=== PATIENT | male | born 1940 | race Caucasian/White ===

== ENCOUNTER 2019-12-04 13:11 | Outpatient (CLI) | payer MEDICARE, OTHER, SELFPAY | END 2019-12-04 13:12 | disposition home or self-care (01) | LOC: CHSLAB 13:18 | PROVIDERS: PCP Internal Medicine; Visit Provider Specialist | DX: C44.329 Squamous cell carcinoma of skin of other parts of face (principal) | CPT/HCPCS: 88305 ==

== ENCOUNTER 2019-12-11 07:59 | Outpatient (CLI) | payer MEDICARE, SELFPAY ==
[2019-12-11 08:11] LABS: Basophils Absolute Auto 0.09 K/mm3 (0.00-0.10); Basophils Percent Auto 0.5 % (0.0-1.0); Eosinophils Absolute Auto 0.23 K/mm3 (0.02-0.50); Eosinophils Percent Auto 1.3 % (1.0-6.0); Hematocrit 36.8 % (37.0-46.0); Hemoglobin 11.4 g/dL (12.4-15.3); Immature Granulocyte Absolute 0.51 K/mm3 (0.00-0.00); Immature Granulocyte Percent A 2.8 % (0.0-0.0); Lymphocytes Absolute Auto 2.14 K/mm3 (1.10-4.50); Lymphocytes Percent Auto 11.9 % (18.0-42.0); Mean Corpuscular Hemoglobin 30.9 pg (27.0-31.0); Mean Corpuscular Volume 99.7 fL (78.0-102.0); Mean Platelet Volume 9.5 fl (8.7-11.0); Monocytes Absolute Auto 1.88 K/mm3 (0.10-0.90); Monocytes Percent Auto 10.5 % (2.0-11.0); Neutrophils Absolute Auto 13.1 K/mm3 (1.7-7.2); Platelet Count Result 237 K/mm3 (150-420); Red Blood Count 3.69 M/mm3 (4.70-6.10); Red Cell Distribution Width 14.5 % (11.6-14.4); White Blood Count 17.9 K/mm3 (4.8-10.8)
[2019-12-11 08:21] LABS: Hemoglobin A1C 5.8 % (<5.7)
[2019-12-11 09:07] LABS: Alanine Aminotransferase 21 U/L (16-63); Albumin Level 3.8 g/dL (3.4-5.0); Alkaline Phosphatase 58 U/L (46-116); Anion Gap 9.3 mmol/L (7-16); Aspartate Amino Transferase 21 U/L (15-37); Bilirubin,Total 0.3 mg/dL (0.00-1.00); Blood Urea Nitrogen 26 mg/dL (7-18); Calcium 8.8 mg/dL (8.5-10.1); Carbon Dioxide 36 mmol/L (21-32); Chloride 104 mmol/L (98-108); Cholesterol 209 mg/dL (0-200); Creatine Kinase 35 U/L (39-308); Estimated Glomerular Filt Rate 53; Ferritin 247 ng/mL (26-388); Glucose 91 mg/dL (70-99); HDL Direct 82 mg/dL (40-60); Iron 65 ug/dL (65-175); LDL Cholesterol Calculated 114 mg/dL (<130); Osmolality Calculated 304 mOsm/kg (285-295); Percent Iron Saturation 25 % (12-57); Potassium 4.3 mmol/L (3.5-5.1); Sodium 145 mmol/L (136-145); Total Protein 6.5 g/dL (6.4-8.2); Triglycerides 67 mg/dL (0-150)
[2019-12-11 12:40] LABS: Appearance Urine Clear (Clear); Bilirubin Urine Negative (Negative); Color Urine Yellow (Yellow); Glucose Urine UA Negative (Negative); Ketones Urine Negative (Negative); Leukocyte Esterase Ur Negative LEU/UL (Negative); Nitrate Urine Negative (Negative); Protein Urine Trace (Negative); Urobilinogen Urine 0.2 mg/dL (0.2-1.0)
[2019-12-11 12:47] LABS: Add Urine Microscopic? YES; Blood Urine Trace-Intact (Negative)
[2019-12-11 12:48] LABS: Bacteria Urine None seen /hpf; RBC Urine 0-2 /hpf (0-2); WBC Urine 0-3 /hpf (0-3)
[2019-12-11 13:20] LABS: Creatinine Urine 142.64 mg/dL (40-278)
[2019-12-11 13:36] LABS: MALB Creatinine Ratio 106.5 mg/g (0-30)
[2019-12-15 12:12] LABS: Vitamin D 25 Hydroxy 50 ng/mL (30-100)
== END 2019-12-11 08:00 | disposition home or self-care (01) ==
LOC: CHSLAB 08:01
PROVIDERS: PCP Internal Medicine; Visit Provider Internal Medicine
DX: E78.2 Mixed hyperlipidemia (principal); I10 Essential (primary) hypertension; R73.01 Impaired fasting glucose; M81.8 Other osteoporosis without current pathological fracture; D64.0 Hereditary sideroblastic anemia
CPT/HCPCS: 36415; 80053; 80061; 81001; 82043; 82306; 82550; 82728; 83036; 83540; 83550; 85025

== ENCOUNTER 2020-01-18 10:19 | Outpatient (CLI) | payer MEDICARE, SELFPAY ==
[2020-01-18 10:38] LABS: Basophils Absolute Auto 0.1 K/mm3 (0.0-0.1); Basophils Percent Auto 0.5 % (0.2-1.2); Eosinophils Absolute Auto 0.2 K/mm3 (0-0.3); Hematocrit 40.4 % (42.0-52.0); Hemoglobin 12.3 g/dL (14.0-18.0); Immature Granulocyte Absolute 0.34 K/mm3 (0.00-0.031); Lymphocytes Absolute Auto 2.06 K/mm3 (0.9-3.2); Lymphocytes Percent Auto 12.4 % (18.3-44.2); Mean Corpuscular HGB Conc 30.4 g/dl (32-36); Mean Corpuscular Volume 101.8 fl (80-100); Mean Platelet Volume 9.9 fl (7.4-10.4); Monocytes Absolute Auto 1.6 K/mm3 (0.1-0.6); Monocytes Percent Auto 9.9 % (2.6-8.5); Neutrophils Absolute Auto 12.4 K/mm3 (1.3-6.7); Neutrophils Percent Auto 74.2 % (45.5-73.1); Platelet Count Result 199 k/mm3 (150-375); Red Blood Count 3.97 M/mm3 (4.6-6.20); Red Cell Distribution Width 14.3 % (11.5-14.5); White Blood Count 16.6 K/mm3 (4.5-10.0)
[2020-01-18 11:43] LABS: Potassium 4.1 mmol/L (3.4-5.0)
[2020-01-18 11:46] LABS: Blood Urea Nitrogen 27 mg/dL (9-20); Calcium 9.4 mg/dL (8.4-10.2); Carbon Dioxide > 40 mmol/L (22-30); Chloride 96 mmol/L (98-107); Estimated Glomerular Filt Rate > 60; Glucose 99 mg/dL (75-110); Lactate Dehydrogenase 525 U/L (313-618); Sodium 140 mmol/L (137-145)
== END 2020-01-18 10:20 | disposition home or self-care (01) ==
PROVIDERS: PCP Internal Medicine; Visit Provider Internal Medicine Hematology & Oncology
DX: D64.9 Anemia, unspecified (principal)
CPT/HCPCS: 36415; 80048; 83615; 85025

== ENCOUNTER 2020-01-30 22:28 | Inpatient (IN) | payer MEDICARE, OTHER, SELFPAY ==
--- NOTE | ~2020-01-30 | XR_ITS ---
EXAMINATION: XR chest 1V portable EXAM DATE: 01/30/2020 23:01 INDICATION: Shortness of breath and cough. TECHNIQUE: Frontal and lateral projections of the chest obtained and reviewed. Comparison is made to prior examination from 04/03/2019. FINDINGS: There is patchy left basilar greater than right basilar airspace disease, probably edema o r pneumonia. Some elevation of the left hemidiaphragm could be from the gas-filled viscus below. Ther e is no pneumothorax suspected. There are no pleural effusions. Cardiomediastinal silhouette is mojgan l. There is aortic arterial sclerosis. There are bony degenerative changes. IMPRESSION: 1. Development of patchy left greater than right basilar pneumonia or edema. Clinical correlation. Reviewed, dictated and finalized at location A. IMPRESSION: 1. Development of patchy left greater than right basilar pneumonia or edema. C linical correlation.
--- NOTE | ~2020-01-30 | US_ITS ---
EXAMINATION: US carotid duplex BI DATE: 01/31/2020 12:05 INDICATION: Syncope. TECHNIQUE: Grayscale, color Doppler, and pulsed Doppler images of the cervical carotid arteries were obtained. The degree of vessel stenosis is placed in one of the following categories: normal, <50%, 5 0-69%, >=70% but less than near-occlusion, near-occlusion, or total occlusion. Note that percent sten osis relative to normal distal artery lumen diameter is indirectly measured from velocity measurement s as described by Franko, et al. Radiology 2003; 229:340-346. COMPARISON: Ultrasound 04/04/2019 FINDINGS: RIGHT: The right common carotid artery (CCA) peak systolic velocity (PSV) is 82 cm/s. The right internal car otid artery (ICA) PSV is 236 cm/s. The right ICA end-diastolic velocity (EDV) is 77 cm/s. The right I CA/CCA PSV ratio is 2.9. Grayscale and color Doppler images yield an estimate of >=50% diameter reduc tion from plaque in the ICA. There is antegrade flow in the right vertebral artery. LEFT: The left CCA PSV is 102 cm/s. The left ICA PSV is 125 cm/s. The left ICA EDV is 56 cm/s. The left ICA /CCA PSV ratio is 1.2. Grayscale and color Doppler images yield an estimate of >=50% diameter reducti on from plaque in the ICA. There is antegrade flow in the left vertebral artery. IMPRESSION: 1. >=70% stenosis in the right internal carotid artery, but less than near occlusion. 2. 50-69% stenosis in the left internal carotid artery. Reviewed, dictated and finalized at location A. IMPRESSION: 1. >=70% stenosis in the right internal carotid artery, but less than near occl usion. 2. 50-69% stenosis in the left internal carotid artery.
--- NOTE | ~2020-01-30 | CT_ITS ---
EXAMINATION: CT brain wo con INDICATION: Transient alteration of awareness COMPARISON: 04/05/2019 TECHNIQUE: Standard unenhanced head CT. The dose-length product (DLP) was 605.33 mGy-cm. The mA was a djusted according to patient size. Iterative reconstruction technique was employed. FINDINGS: There is no acute intraparenchymal hemorrhage. No evidence of mass lesion. No evidence of a cute infarction. There is mild periventricular and subcortical hypodensity probably related to small vessel ischemic disease. There is mild prominence of the sulci and ventricles related to cerebral atr ophy. Intracranial calcified cerebral atherosclerosis is noted. There are no extra-axial collections. There is no mass effect or midline shift. Changes in the globes are likely from ocular lens surgery. IMPRESSION: 1. No acute intracranial abnormality. 2. Age related findings. Reviewed, dictated and finalized at location A.
[2020-01-30 22:30] VITALS: BP 152/95; PULSE 125; RESP 28; TEMP 36.8; O2SAT 100
--- NOTE | 2020-01-30 22:35 | ECG_ITS ---
Measurements Intervals [place] Rate: 131 P: [place]: 0 QRS: 33 QRSD: 95 T: 55 QT: 277 QTc: 409 Interpretive Statements ATRIAL FIBRILLATION WITH RAPID VENTRICULAR RESPONSE VENTRICULAR PREMATURE COMPLEX NONSPECIFIC T-WAVE ABNORMALITY- INF/LAT LEADS BASELINE ARTIFACT- I, II, III, AVR, AVL, AVF, V1 ABNORMAL ECG Electronically Signed On 01-31-2020 7:25:44 CDT by Jamison Jones D.O.
--- NOTE | 2020-01-30 22:41 | ED.GENADULT ---
HPI - General Adult General Chief complaint: Shortness of Breath/Dyspnea Stated complaint: amb History of Present Illness HPI narrative: Yina is a 80M with a PMH of Afib, COPD, and CHF that presented to the ED with SOB by ambulance for SOB. He has trouble giving exact times and trouble describing the frequency of his symptoms so gathering a detailed history is difficult. He had been having some shortness of breath for 3 weeks that was worse today.He woke up at 2:00 a.m. got up and had an episode of syncope. He reports that thoughout the day he didn't feel well and his SOB persisted. Because of this he called the ambulance and came into the ED. He denies CP, N/V/D, and diaphoresis. Of note he did have some confusion on the ride to the hospital due to a misfunction with oxygen administration. Related Data Home Medications Medication Instructions Recorded Confirmed aspirin 81 mg PO DAILY 01/30/20 01/31/20 calcium carbonate-vitamin D3 1 tablet PO DAILY 01/30/20 01/31/20 cholecalciferol (vitamin D3) 1,000 unit PO DAILY 01/30/20 01/31/20 cyanocobalamin (vitamin B-12) 100 mcg PO DAILY 01/30/20 01/31/20 diltiazem HCl 360 mg PO DAILY 01/30/20 01/31/20 fluticasone propion-salmeterol 2 puff INHALATION BID 01/30/20 01/31/20 [Advair HFA] furosemide 40 mg PO DAILY 01/30/20 01/31/20 levalbuterol HCl 1.25 mg INHALATION TID 01/30/20 01/31/20 montelukast 10 mg PO DAILY 01/30/20 01/31/20 omeprazole 20 mg PO DAILY 01/30/20 01/31/20 potassium chloride 20 meq PO DAILY 01/30/20 01/31/20 prednisone 10 mg PO DAILY 01/30/20 01/31/20 theophylline 300 mg PO DAILY 01/30/20 01/31/20 tiotropium bromide [Spiriva with 1 cap INHALATION DAILY 01/30/20 01/31/20 HandiHaler] Allergies Allergy/AdvReac Type Severity Reaction Status Date / Time No Known Allergies Allergy Mild Verified 04/09/19 10:08 Review of Systems Constitutional: Constitutional: Denies chills and Denies fever(s) Eyes: Eyes: Reports no additional eye complaints ENT: Reports system reviewed and no additional complaints, except as documented Cardiovascular: Cardiovascular: Reports as per HPI Respiratory: Respiratory: Reports as per HPI Gastrointestinal: Gastrointestinal: Reports as per HPI Genitourinary: Genitourinary: Reports no additional male genitourinary complaints Musculoskeletal: Musculoskeletal: Reports no additional musculoskeletal complaints Integumentary/Breasts: Skin/Breast: Reports system reviewed and no additional complaints, except as docu Neurologic: Reports system reviewed and no additional complaints, except as documented Psychiatric: Psychiatric: Reports no additional psychiatric complaints Endocrine: Endocrine: Reports no additional endocrine complaints Hematologic/Lymphatic: Hematologic/Lymphatic: Reports no additional hematologic/lymphatic complaints Allergic/Immunologic: Allergic/Immunologic: Reports no additional allergic/immunologic complaints [facility] Social History Social History Gender identity (if verbalized by the patient): Male Exam Const: General: no acute distress and alert; No confusion Orientation/consciousness: patient oriented x3 Limitations: No altered mental status HENMT: Other: normocephalic, atraumatic, moist oropharynx Eyes: Conjunctivae: conjunctivae normal Pupils: Equal, round and reactive pupils present Neck: Neck: normal visual inspection Chest: Chest palpation & inspection: normal inspection of the chest Resp: Other: on initial inspection he had poor air movement in all demarco but no cough. He was able to speak in complete sentences but was tachypneic. Cardio: Heart sounds: no murmurs Other: Tachycardia with irregularly irregular rhythm. No lower extremity edema noted. GI: Inspection: non-distended GI Palp: Yes Soft to palpation and No Tenderness to palpation present (GI) Skin: Other: diffusely dry skin with flaking but no rashes noted Neuro: Ge
--- NOTE | 2020-01-30 22:55 | PC.NURSE ---
Verbal order Dr Courtney- change Xopenex dose from 3.75mg to 1.25mg inh. RT aware.
[2020-01-30] MEDS: LEVALBUTEROL NEB 1.25 MG/3 ML 3.75 MG INHALATION (22:56)
[2020-01-30 22:59] VITALS: PULSE 137; RESP 22
[2020-01-30 23:00] VITALS: BP 167/98; PULSE 124; RESP 25; O2SAT 100
[2020-01-30 23:01] VITALS: PULSE 123; RESP 23
[2020-01-30 23:10] LABS: Base Excess ABG 6.5 mmol/L (0-2); HCO3 ABG 36.7 mmol/L (23-29); Oxygen Content ABG 17.2 %vol (16.0-22.0); Oxygen Saturation ABG 99.1 % (95-97); Oxyhemoglobin 98.1 % (94-100); PCO2 ABG 88.2 mmHg (35-45); PO2 ABG 172.9 mmHg (75-85); Total Hemoglobin 12.2 g/dL; pH ABG 7.24 (7.35-7.45)
[2020-01-30 23:11] LABS: Basophils Absolute Auto 0.06 K/mm3 (0.00-0.10); Basophils Percent Auto 0.3 % (0.0-1.0); Device OTHER DEVICE; Eosinophils Absolute Auto 0.06 K/mm3 (0.02-0.50); Eosinophils Percent Auto 0.3 % (1.0-6.0); Hematocrit 37.8 % (37.0-46.0); Hemoglobin 11.3 g/dL (12.4-15.3); Immature Granulocyte Absolute 0.24 K/mm3 (0.00-0.00); Immature Granulocyte Percent A 1.3 % (0.0-0.0); Lymphocytes Absolute Auto 0.82 K/mm3 (1.10-4.50); Lymphocytes Percent Auto 4.3 % (18.0-42.0); Mean Corpuscular HGB Conc 29.9 g/dL (32.0-36.0); Mean Corpuscular Volume 103.8 fL (78.0-102.0); Mean Platelet Volume 9.7 fl (8.7-11.0); Modified Allen's Test Pass; Monocytes Absolute Auto 1.54 K/mm3 (0.10-0.90); Monocytes Percent Auto 8.1 % (2.0-11.0); Neutrophils Absolute Auto 16.2 K/mm3 (1.7-7.2); Neutrophils Percent Auto 85.7 % (50.0-70.0); Platelet Count Result 269 K/mm3 (150-420); Red Blood Count 3.64 M/mm3 (4.70-6.10); Red Cell Distribution Width 14.4 % (11.6-14.4); Site Drawn RIGHT BRACHIAL; White Blood Count 18.9 K/mm3 (4.8-10.8)
[2020-01-30 23:24] LABS: INR 1.1; Prothrombin Time 11.7 Seconds (9.64-11.0)
[2020-01-30 23:28] LABS: Alanine Aminotransferase 80 U/L (16-63); Albumin Level 3.4 g/dL (3.4-5.0); Alkaline Phosphatase 65 U/L (46-116); Anion Gap 2.3 mmol/L (7-16); Aspartate Amino Transferase 53 U/L (15-37); Bilirubin,Total 0.4 mg/dL (0.00-1.00); Blood Urea Nitrogen 36 mg/dL (7-18); Calcium 8.9 mg/dL (8.5-10.1); Carbon Dioxide 45 mmol/L (21-32); Chloride 103 mmol/L (98-108); Estimated CRCL calculation 39 ml/min; Estimated Glomerular Filt Rate 59; Glucose 175 mg/dL (70-99); Osmolality Calculated 314 mOsm/kg (285-295); Potassium 4.3 mmol/L (3.5-5.1); Sodium 146 mmol/L (136-145); Total Protein 6.4 g/dL (6.4-8.2); Troponin I 0.02 ng/mL (0.00-0.056)
[2020-01-30 23:30] VITALS: BP 124/75; PULSE 117; RESP 22; O2SAT 97
--- NOTE | 2020-01-30 23:30 | PC.NURSE ---
Spoke with pt's , Lorri at [phone]. Aware of plan for admission.
--- NOTE | 2020-01-30 23:40 | PC.NURSE ---
Pt arrived on O2 at 5L via NC. O2 titrated down throughout stay thus far, currently on 2L via NC with SpO2 94%. Diltiazem infusing at 5mg/hr as ordered.
[2020-01-30 23:46] LABS: BNP 347 pg/mL (0-100)
[2020-01-31] VITALS (22 sets, daily range): BP systolic 115–148; BP diastolic 60–84; PULSE 83–126; RESP 18–28; TEMP 36.6–37.4; O2SAT 93–100; BMI 22.0
--- NOTE | 2020-01-31 00:22 | PC.NURSE ---
Report to NOE Rankin.
--- NOTE | 2020-01-31 00:50 | ADMGEN ---
This patient, Yina Mccormick, was admitted to 2nd Floor Room 205-2. Patient/family oriented to hospital policies and general routines including ID bracelet, bed and alarms, visiting hours, pain management, procedures, bathroom and other care routines, personal items, smoking policy, room service/diet, and visiting hours. Valuables list has been completed. Information on how to activate the Rapid Response Team has been discussed. Patient/Family are encouraged to report perceived risks to care and to ask questions if they do not understand what they are told or what they should do.
--- NOTE | 2020-01-31 00:50 | PC.NURSE ---
0040 Paperwork signed by pt. for admit for 23 hr. obs. report already called to Viji Coulter RN by previous RN Viji Wilson Pt .resting c Diltiazem gtt infusing per order, pt. stable and has no c/o at this time. 0050 Pt. taken to floor for admit per NOE Heredia.
[2020-01-31] MEDS: LEVALBUTEROL NEB 1.25 MG/3 ML INHALATION ×3 (06:27→20:06)
--- NOTE | 2020-01-31 08:35 | PC.NURSE ---
Sitting up in bed eating breakfast, no distress noted, cardizem drip continues, afib 106
[2020-01-31] MEDS: SALMET XINAFT/FLUTIC PROPIN 100 MCG/50 MCG INH CAP 1 PUFF INHALATION ×2 (09:23→17:13)
[2020-01-31] MEDS: POTASSIUM CHLORIDE 10 MEQ TABLET 20 MEQ PO (09:25)
[2020-01-31] MEDS: predniSONE 10 MG TABLET PO (09:25)
[2020-01-31] MEDS: ASPIRIN 81 MG ENTERIC TABLET PO (09:25)
[2020-01-31] MEDS: ENOXAPARIN 40 MG/0.4 ML SYRINGE SUB-Q (09:25)
[2020-01-31] MEDS: MONTELUKAST SODIUM 10 MG TABLET PO (09:25)
--- NOTE | 2020-01-31 09:30 | PC.NURSE ---
Telemetry afib 90-110, drip continues
--- NOTE | 2020-01-31 10:31 | PC.NURSE ---
Cardizem drip discontinued at this time
--- NOTE | 2020-01-31 11:30 | PC.NURSE ---
Telemetry afib 90-110 drip is off at this time
[2020-01-31 12:37] LABS: Hematocrit 32.5 % (37.0-46.0); Hemoglobin 9.7 g/dL (12.4-15.3); Mean Corpuscular HGB Conc 29.8 g/dL (32.0-36.0); Mean Corpuscular Volume 103.8 fL (78.0-102.0); Mean Platelet Volume 10.1 fl (8.7-11.0); Platelet Count Result 245 K/mm3 (150-420); Red Blood Count 3.13 M/mm3 (4.70-6.10); Red Cell Distribution Width 14.6 % (11.6-14.4); White Blood Count 16.1 K/mm3 (4.8-10.8)
--- NOTE | 2020-01-31 12:50 | PC.NURSE ---
To imaging via wheel chair
--- NOTE | 2020-01-31 12:59 | PC.NURSE ---
Returned from imaging
[2020-01-31 13:16] LABS: Alanine Aminotransferase 84 U/L (16-63); Albumin Level 3.1 g/dL (3.4-5.0); Alkaline Phosphatase 55 U/L (46-116); Anion Gap 5.5 mmol/L (7-16); Aspartate Amino Transferase 47 U/L (15-37); Bilirubin,Total 0.3 mg/dL (0.00-1.00); Blood Urea Nitrogen 35 mg/dL (7-18); Calcium 8.5 mg/dL (8.5-10.1); Carbon Dioxide 41 mmol/L (21-32); Chloride 102 mmol/L (98-108); Estimated CRCL calculation 39 ml/min; Estimated Glomerular Filt Rate 59; Glucose 143 mg/dL (70-99); Osmolality Calculated 308 mOsm/kg (285-295); Potassium 4.5 mmol/L (3.5-5.1); Sodium 144 mmol/L (136-145); Total Protein 5.4 g/dL (6.4-8.2)
--- NOTE | 2020-01-31 13:18 | PC.NURSE ---
Changed to full admit, afib 90's noted
[2020-01-31 13:23] LABS: Creatine Kinase 33 U/L (39-308)
--- NOTE | 2020-01-31 13:26 | PC.NURSE ---
Kristen ROSSN notifed of troponin level of 0.1 and current labs.
--- NOTE | 2020-01-31 13:33 | ECG_ITS ---
Measurements Intervals [place] Rate: 96 P: [place]: 0 QRS: 28 QRSD: 100 T: 68 QT: 324 QTc: 410 Interpretive Statements ATRIAL FIBRILLATION NONSPECIFIC T-WAVE ABNORMALITY- LATERAL LEADS BASELINE ARTIFACT- II, III ABNORMAL ECG Electronically Signed On 01-31-2020 13:57:54 CDT by Jamison Jones D.O.
--- NOTE | 2020-01-31 13:33 | PC.NURSE ---
Kristen BRICE stated no new orders on patient r/t positive trop level
--- NOTE | 2020-01-31 14:00 | PC.NURSE ---
Working with therapy in room
--- NOTE | 2020-01-31 15:02 | PM.IMHP ---
H&P: HPI History of Present Illness Chief complaint: amb Narrative: Yina Mccormick is a 80 year old male was admitted yeaterday after feeling short of breath, dizzy upon standing, passing-out upon standing, and falling backwards onto the floor. Patient was found to be in AFib with RVR heart rate 125-137 and stable blood pressures. Potassium, magnesium and phosphorus levels are within normal limits. Past history of COPD, follows with family specialist Dr. Lamar at [facility] and past history of PAF and chronic Afib, follows with Dr. Isabela Basurto, Water Truck Driver at [facility] in [place], [place] ([phone]). Also HTN, GERD, facial forehead skin cancer history with f/u to Sales Inspector Dr. Maloney, History of abdominal aortic aneurysm status post endovascular stent, history of BPH status post TURP, past smoker, pneumonia, Chronic respiratory failure, severe COPD with home oxygen 2 L at rest and 4 L with activity. He has had past hospitalizations due to coughing and dyspnea upon exertion, AFib with RVR, and wheezing, He was given Lovenox during past hospitalizations and developed bilateral rectus sheath hematomas, so he is not a candidate for anticoagulation of any sort other than 81 mg aspirin daily. Yina had a hospitalization at [facility] in March of 2019 due to loss of consciousness. He was started on Keppra for seizures suspicion at that time. His CTA of the brain was unremarkable except for chronic lacunar infarcts. At that time his carotid ultrasound showed less than 50% stenosis of the bilateral carotid arteries. Duran was completed. Even after discharge, he continued to have some dizziness upon standing from sitting position. His DURAN echo in March of 2019 showed moderate dilatation of left atrium, no evidence of thrombi in the appendage, and ejection fraction of 55%. Yina was referred to Dr. Dutta and Dr. Del Valle at [facility] for scheduling a Watchman device procedure in January 2020. due to the COVID virus pandemic, he has been unable to follow-up on that plan. He follows up with Dr. Basurto regarding monitoring of Abdominal Aortic Graft with annual ultrasounds. Today, I called and spoke with his caster investment casting office and was informed that the patient is not a candidate for daily anticoagulation due to occult bleeding history, recurrent falls, and history of bilateral rectus sheath hematomas. We will continue the daily aspirin at 81 mg, ordered Ahsan and Jose jay, but no further anticoagulation at this time due to his risk factors. We will continue telemetry monitoring today as we wean him from IV diltiazem. His home dose was 360 mg daily and that has been increased to 480 daily. His 1st set of cardiac enzymes was within normal limits, but this morning's cardiac enzymes were mildly elevated, will repeat with serial cardiac enzymes starting later this afternoon. The patient continues to deny chest pain, chest pressure, dizziness, numbness or tingling to extremities, jaw pain or shoulder pain. When he was participating with his physical therapy session, he did become dyspneic with exertion and stated that he had difficulty with deep breathing. Ordered blood urine and sputum cultures today as white count was 18.9, no fevers noted. his chest x-ray showed development of patchy left greater than right basilar pneumonia or edema. Started him on azithromycin IV antibiotics today, ordered his neb treatments to be continued and inhalers continued, ordered incentive spirometry, Mucinex, PT OT evaluation, daily orthostatics, daily neuro checks, carotid Doppler studies, head CT scan, and discontinued his Lovenox. His 1st set of orthostatic blood pressures remained stable and did not drop with standing. His carotid Doppler studies today showed 50-69% stenosis in the left internal carotid artery and greater than or equal to 70% stenosis in the right internal carotid artery, but less than near occlusion. I have advised him to follow-up with a vascular surgeon
[2020-01-31 16:24] LABS: Creatine Kinase 38 U/L (39-308); Troponin I 0.02 ng/mL (0.00-0.056)
--- NOTE | 2020-01-31 17:35 | PC.NURSE ---
dentures dropped off with front end loader operator, pt has them now as well as electric razor from home
[2020-02-01] VITALS (8 sets, daily range): BP systolic 103–134; BP diastolic 59–73; PULSE 72–108; RESP 18–20; TEMP 36.6–37.2; O2SAT 93–99
[2020-02-01 01:15] LABS: Creatine Kinase 30 U/L (39-308); Troponin I 0.02 ng/mL (0.00-0.056)
--- NOTE | 2020-02-01 05:47 | PC.NURSE ---
Patient requesting to get up in chair. Patient was able to get himself up to a sitting position and standing with stand by assist. Gait was steady with a walker.
[2020-02-01] MEDS: LEVALBUTEROL NEB 1.25 MG/3 ML INHALATION (06:14)
--- NOTE | 2020-02-01 07:05 | PC.NURSE ---
Patient sustained small skin tear to left lateral elbow. He states he hit his elbow while reaching for the phone. Site was cleansed with wound cleanser. Skin is well approximated. Aquacell dressing was applied to the site.
--- NOTE | 2020-02-01 07:50 | PC.NURSE ---
Assisted to stand up to void
--- NOTE | 2020-02-01 08:12 | PC.NURSE ---
In chair for breakfast, denies needs at this time, feeds self, oxygen on per home dose 4L NC
[2020-02-01 08:20] LABS: Hematocrit 33.2 % (37.0-46.0); Hemoglobin 9.9 g/dL (12.4-15.3); Mean Corpuscular HGB Conc 29.8 g/dL (32.0-36.0); Mean Corpuscular Hemoglobin 30.6 pg (27.0-31.0); Mean Corpuscular Volume 102.5 fL (78.0-102.0); Mean Platelet Volume 9.9 fl (8.7-11.0); Platelet Count Result 265 K/mm3 (150-420); Red Blood Count 3.24 M/mm3 (4.70-6.10); Red Cell Distribution Width 14.4 % (11.6-14.4); White Blood Count 17.6 K/mm3 (4.8-10.8)
[2020-02-01 08:49] LABS: Alanine Aminotransferase 85 U/L (16-63); Albumin Level 3.3 g/dL (3.4-5.0); Alkaline Phosphatase 55 U/L (46-116); Anion Gap 1.3 mmol/L (7-16); Aspartate Amino Transferase 36 U/L (15-37); Bilirubin,Total 0.5 mg/dL (0.00-1.00); Blood Urea Nitrogen 40 mg/dL (7-18); Calcium 8.7 mg/dL (8.5-10.1); Carbon Dioxide 40 mmol/L (21-32); Chloride 100 mmol/L (98-108); Estimated CRCL calculation 34 ml/min; Estimated Glomerular Filt Rate 49; Glucose 114 mg/dL (70-99); Osmolality Calculated 294 mOsm/kg (285-295); Potassium 4.3 mmol/L (3.5-5.1); Sodium 137 mmol/L (136-145); Total Protein 6.1 g/dL (6.4-8.2)
[2020-02-01 08:50] LABS: Creatine Kinase 30 U/L (39-308); Troponin I 0.02 ng/mL (0.00-0.056)
[2020-02-01 08:52] LABS: Ferritin 363 ng/mL (26-388); Iron 60 ug/dL (65-175); Percent Iron Saturation 29 % (12-57)
[2020-02-01] MEDS: ASPIRIN 81 MG ENTERIC TABLET PO (09:09)
[2020-02-01] MEDS: MONTELUKAST SODIUM 10 MG TABLET PO (09:11)
[2020-02-01] MEDS: SALMET XINAFT/FLUTIC PROPIN 100 MCG/50 MCG INH CAP 1 PUFF INHALATION (09:12)
[2020-02-01] MEDS: predniSONE 10 MG TABLET PO (09:12)
[2020-02-01] MEDS: POTASSIUM CHLORIDE 10 MEQ TABLET 20 MEQ PO (09:12)
--- NOTE | 2020-02-01 09:29 | PC.NURSE ---
Remains in chair with legs elevated, call light in reach for safety
[2020-02-01] MEDS: POLYSACCHARIDE IRON COMPLEX 150 MG CAPSULE PO (10:42)
--- NOTE | 2020-02-01 10:49 | PC.NURSE ---
SBA back to bed, tolerated well, slight medina noted
--- NOTE | 2020-02-01 12:00 | PC.NURSE ---
Assisted to chair, tolerated well, slight medina noted, no dizzyness noted
--- NOTE | 2020-02-01 13:10 | PC.NURSE ---
Ate well, zithromax infusing
--- NOTE | 2020-02-01 13:28 | PC.NURSE ---
zithromax infused, to switch from IP to SSB today, patient aware of status change and agreeable
--- NOTE | 2020-02-01 13:33 | ECG_ITS ---
Measurements Intervals [place] Rate: 85 P: [place]: 0 QRS: 20 QRSD: 100 T: 62 QT: 338 QTc: 403 Interpretive Statements ATRIAL FIBRILLATION BASELINE ARTIFACT- I, II, III, AVR, AVL, AVF, V1-V2, V4-V6 ABNORMAL ECG Electronically Signed On 02-01-2020 13:35:53 CDT by Jamison Jones D.O.
[2020-02-01 13:41] LABS: Add Urine Microscopic? YES; Appearance Urine Clear (Clear); Bilirubin Urine Negative (Negative); Blood Urine 1+ (Negative); Glucose Urine UA Negative (Negative); Ketones Urine Negative (Negative); Leukocyte Esterase Ur Negative (Negative); Nitrate Urine Negative (Negative); Protein Urine 1+ (Negative); Specific Grav Ur 1.025 (1.010-1.020); Urobilinogen Urine 0.2 mg/dL (0.2-1.0)
[2020-02-01 13:48] LABS: Bacteria Urine Trace /hpf; Squamous Epithelial Cell Urine Rare /hpf (Few); WBC Urine None seen /hpf (0-3)
[2020-02-01 13:49] LABS: Color Urine Yellow (Yellow)
--- NOTE | 2020-02-01 14:16 | PM.DS ---
DS: Diagnosis Admitting Diagnosis Admitting Diagnosis: Unspecified atrial fibrillation Discharge Diagnosis (1) Atrial fibrillation with rapid ventricular response: Code(s): I48.91 - Unspecified atrial fibrillation Status: Acute Assessment and Plan: CONTROLLED. HR for past 24 hours has been 70-90bpm now on 480mg diltiazem PO daily. Not rate controlled at admission. HR 110-130s. Called his pack press operator office and was informed by them that the patient is not a candidate for daily anticoagulation due to occult bleeding history, recurrent falls, and history of bilateral rectus sheath hematomas. continue the daily aspirin at 81 mg, and discontinued his Lovenox. ordered SCDs and Jose hose, but no further anticoagulation at this time due to his risk factors. weaned off IV Dilt yesterday with no concerns or ectopy; home dose was 360 mg daily and that has been increased to 480 daily regarding cardiac enzymes: last 3 troponins were negative. patient continues to deny chest pain, chest pressure, dizziness, numbness or tingling to extremities, jaw pain or shoulder pain. unsure what the source is, working to rule out and/or treat - untreated infection (UA clear, Cultures remain pending: urine/sputum/blood)? electrolyte disturbance (ruled out)? COPD exacerbation (possibly)? CHF exacerbation(no evidence of it on exam, possibly on CXR and elevated BNP)? [place](no evidence of it on exam and Trops negative)? investigating as to whether the WBC is chronically elevated? no fevers noted. his chest x-ray showed development of patchy left greater than right basilar pneumonia or edema. Started him on azithromycin IV antibiotics ordered his neb treatments to be continued and inhalers continued, ordered incentive spirometry, Mucinex, (2) Elevated troponin: Code(s): R79.89 - Other specified abnormal findings of blood chemistry Status: Acute Assessment and Plan: 1st set of cardiac enzymes was within normal limits yesterday at admission this morning's cardiac enzymes were mildly elevated, then last 3 troponins were negative. likely reactive to Afib RVR rate uncontrolled at admission continue to maximize respiratory interventions to keep COPD well controlled. (3) COPD, frequent exacerbations: Code(s): J44.1 - Chronic obstructive pulmonary disease with (acute) exacerbation Status: Acute Assessment and Plan: CHRONIC, Stable at this time, Possibly progressive worsening of disease. Will see if Swing Rehab can improve his respiratory status and endurance and strength. Past history of COPD, follows with radioisotope production operator Dr. Lamar at [facility] Hx. past smoker, pneumonia, Chronic respiratory failure, severe COPD with home oxygen 2 L at rest and 4 L with activity. past hospitalizations due to coughing and dyspnea upon exertion, and wheezing, blood urine and sputum cultures remain pending WBC may be chronically elevated, no fevers noted. chest x-ray showed development of patchy left greater than right basilar pneumonia or edema. Started him on azithromycin IV antibiotics ordered his neb treatments to be continued and inhalers continued, ordered incentive spirometry, Mucinex, PT OT evaluation continue home o2 requirement of 2-4 L O2 NC. (4) Leukocytosis: Code(s): D72.829 - Elevated white blood cell count, unspecified Status: Acute Assessment and Plan: CHRONIC, noted to have chronic elevated WBC count upon review of labs in our system and spoke with PCP Dr. Day today who agreed and confirmed. 2 years ago WBC 17, 1 year ago WBC 16 and 15, then on 12/11/2019 WBC 17.9. Patient has been to see Lumber Press Operator/Oncologist Dr. Kaur for evaluation. When asking the patient for any cancer history, could only recall skin cancer. takes daily low dose 10mg prednisone for COPD. blood urine and sputum cultures pending no fevers noted. his chest x-ray showed development of patchy left greater
== END 2020-02-01 13:35 | disposition swing bed (61) | DRG 309 ==
LOC: CHSED 01-31 00:08 → CHS2ND 01-31 00:13
PROVIDERS: Nurse Practitioner; Admitting Provider Family Medicine; Emergency Provider Family Medicine; PCP Internal Medicine; Visit Provider Family Medicine
DX: I48.91 Unspecified atrial fibrillation (principal); J96.10 Chronic respiratory failure, unspecified whether with hypoxia or hypercapnia; I11.0 Hypertensive heart disease with heart failure; I50.9 Heart failure, unspecified; I65.23 Occlusion and stenosis of bilateral carotid arteries; D72.829 Elevated white blood cell count, unspecified; R53.1 Weakness; K21.9 Gastro-esophageal reflux disease without esophagitis; I71.4 Abdominal aortic aneurysm, without rupture
CPT/HCPCS: 36415; 36600; 70450; 71045; 80053; 81001; 82550; 82553; 82728; 82805; 83540; 83550; 83880; 84484; 85025; 85027; 85610; 87040; 87070; 87077; 87086; 87088; 87186; 87205; 93005; 93880; 94640; 96365; 96372; 97161; 97165; 97530; 99285; A9270; G0378; J0456; J1650; J7512

== ENCOUNTER 2020-02-01 13:40 | Inpatient (IN) | payer MEDICARE, OTHER, SELFPAY ==
[2020-02-01] VITALS (8 sets, daily range): BP systolic 120; BP diastolic 59; PULSE 77–106; RESP 20–22; TEMP 36.7; O2SAT 93–98; BMI 22.5
--- NOTE | ~2020-02-01 | XR_ITS ---
EXAMINATION: XR chest 1V portable EXAM DATE: 02/02/2020 07:04 INDICATION: Increasing shortness of breath. TECHNIQUE: Portable AP frontal chest x-ray was obtained. Comparison is made to prior examination from 01/30/2020. FINDINGS: There is moderate amount of bilateral lower lobe predominant airspace disease with elevated left hemidiaphragm. This has progressed compared to prior examination. There are small bilateral ple ural effusions. Probably worsening edema and/or infection. There is no pneumothorax suspected. There is aortic arterial sclerosis. Cardiac silhouette is stable in size compared to prior exam. IMPRESSION: Worsening bibasilar predominant edema and/or pneumonia. Reviewed, dictated and finalized at location G.
--- NOTE | 2020-02-01 14:05 | PC.NURSE ---
Here for skilled swing bed due to weakness, recent admit for afib RVR and syncope, currenlty weak, using furniture to get around room, medina noted, chronic copd, wears oxygen at 4L [place] at home and this is contniued on swing bed admit, oriented to room and aware of requirements for SSB status, call light explainted
--- NOTE | 2020-02-01 14:13 | PC.NURSE ---
Admit for SSB service, denies needs, hx of afib RVR and syncope, states no dizzy feeling today, in chair, legs elevated, oxygen on per home dose, no distress at rest, call light and presonal items in reach
[2020-02-01] MEDS: LEVALBUTEROL NEB 1.25 MG/3 ML INHALATION ×2 (15:08→19:37)
--- NOTE | 2020-02-01 16:45 | PC.NURSE ---
given warm water basin to wash up, dressed self, medina noted, tolerated well
[2020-02-01] MEDS: SALMET XINAFT/FLUTIC PROPIN 100 MCG/50 MCG INH CAP 1 PUFF INHALATION (17:37)
--- NOTE | 2020-02-01 17:43 | PC.NURSE ---
ate well, denies needs, oxygen on 4L NC
--- NOTE | 2020-02-01 21:14 | PM.EVENT ---
Event Note Event Note Event Note: Patient states he feels better than when he was admitted. Irregularly irregular and his rate is in the 90s. Decreased breath sounds bilaterally with few scattered wheezes. Mild increased work of breathing. Minimal edema. Extremities are warm and dry. tolerating new dose of diltiazem and rate is well controlled. Will switch to a swing bed today for rehabilitation with an eye toward sending him home. I have examined the patient and reviewed the chart. I discussed the patient's care with A Raphael BENTLEY and agree with her assessment plan.
--- NOTE | 2020-02-01 22:10 | PC.NURSE ---
pt requested an increase in his oxygen rate, reports can't get enough' pt encourage to take a few breaths through his nose, oxygen increase to 5L nc, pt reports improvement
[2020-02-02] VITALS (13 sets, daily range): BP systolic 127–154; BP diastolic 58–69; PULSE 94–114; RESP 18–30; TEMP 37.2–37.3; O2SAT 78–100
--- NOTE | 2020-02-02 00:50 | PC.NURSE ---
Yan Dugan RN given patient update and checked Pox and pulse and titrated Oxygen to 4L per simple mask
[2020-02-02] MEDS: LEVALBUTEROL NEB 1.25 MG/3 ML INHALATION ×2 (05:56→14:19)
--- NOTE | 2020-02-02 06:17 | PC.NURSE ---
Call placed to Dr Schmidt regarding pt having difficulty breathing, report given of pt vital signs and pt being combative while trying to change gown and linen because pt was incontinent of urine, Dr Schmidt stated he will order a CXR this morning, no other orders given at this time.
--- NOTE | 2020-02-02 06:51 | PC.NURSE ---
lab here for LEXY; XRAY here
[2020-02-02 06:58] LABS: Base Excess ABG 10.4 mmol/L (0-2); HCO3 ABG 43.9 mmol/L (23-29); Oxygen Content ABG 15.1 %vol (16.0-22.0); Oxygen Saturation ABG 98.3 % (95-97); Oxyhemoglobin 97.7 % (94-100); PO2 ABG 138.9 mmHg (75-85); Total Hemoglobin 10.8 g/dL
[2020-02-02 07:01] LABS: PCO2 ABG 143.7 mmHg (35-45); Site Drawn RIGHT RADIAL
[2020-02-02 07:02] LABS: Modified Allen's Test Pass
[2020-02-02 07:03] LABS: Device SIMPLE MASK
--- NOTE | 2020-02-02 07:07 | PC.NURSE ---
Report given to oncoming nurse and need for Solumedrol and Albuterol. ABGs and CXR given. Dr. Dumont here and would like to speak to family regarding possible intubation.
--- NOTE | 2020-02-02 07:15 | PC.NURSE ---
Patient will open eyes with painful stimuli, sternal rub. Simple mask repalced with BIPAP. MD informed sports book writer, patient will be tested for COVID19. Patient moved to room 212. Droplet precautions initiated. notified by charge nurse.
--- NOTE | 2020-02-02 07:17 | PC.NURSE ---
[id number] Dr Courtney here and called to verify code status. claims he definitely did not want anything done. No tubes. is on her way
--- NOTE | 2020-02-02 07:38 | P.PNCROSS_ITS ---
Event Note Event Note Event Note: Just after 7:00 a.m. I was informed that the ABG done around 600 for labored breathing and obtundation had a PaCO2 of 143 and a pH of 7.1. I evaluated the patient and He would open his eyes and grunt but not follow commands. He is DNR but we contacted his and DPOA who said that he would n ot want to be intubated. A duoneb was started as well. He was given methylprednisone last night as well. However, just after that a CXR was reported by the radioisotope technician. Per my interpretation it had diffuse infiltrates and he previously had leukopenia. Given the respiratory distress, leukopenia and CXR he was transferred to a negative isolation room for possible COVID19 exposure. He wWill add ceftriaxone on to the azithromycin for possible PNA, however COPD or viral pneumonia are more likely.
[2020-02-02] MEDS: ALBUTEROL SULFATE NEB 2.5 MG/3 ML INH 5 MG INHALATION (07:55)
[2020-02-02 08:26] LABS: Base Excess ABG 13.3 mmol/L (0-2); HCO3 ABG 46.2 mmol/L (23-29); Oxygen Content ABG 14.1 %vol (16.0-22.0); Oxygen Saturation ABG 92.6 % (95-97); Oxyhemoglobin 92.2 % (94-100); PO2 ABG 66.8 mmHg (75-85); Total Hemoglobin 10.8 g/dL; pH ABG 7.16 (7.35-7.45)
[2020-02-02 08:28] LABS: PCO2 ABG 133.7 mmHg (35-45)
[2020-02-02 08:29] LABS: Device BIPAP; Modified Allen's Test Pass; Site Drawn LEFT RADIAL
[2020-02-02 08:34] LABS: Expiratory Pressure 6 cmH2O; Inspiratory Pressure 12 cmH2O
[2020-02-02 09:32] LABS: Base Excess ABG 10.4 mmol/L (0-2); HCO3 ABG 40.8 mmol/L (23-29); Oxygen Content ABG 13.7 %vol (16.0-22.0); Oxygen Saturation ABG 96.5 % (95-97); PCO2 ABG 101.6 mmHg (35-45); PO2 ABG 84.1 mmHg (75-85); Total Hemoglobin 10.1 g/dL; pH ABG 7.22 (7.35-7.45)
[2020-02-02 09:34] LABS: Modified Allen's Test Pass; Site Drawn LEFT RADIAL
[2020-02-02 09:36] LABS: Device BIPAP; Expiratory Pressure 8 cmH2O; Inspiratory Pressure 16 cmH2O
--- NOTE | 2020-02-02 10:58 | PC.NURSE ---
[facility] paged out at this time.
--- NOTE | 2020-02-02 11:59 | PC.NURSE ---
stated she wants patient on Hospice
--- NOTE | 2020-02-02 12:28 | PM.IMPN ---
Subjective Date/time seen: 02/02/20 12:28 Review of Systems Constitutional: Constitutional: Denies excessive sweating, Denies headache(s), Denies increased appetite, Denies snoring and Denies weight gain Eyes: Eyes: Denies exophthalmos, Denies diplopia, Denies floaters and Denies loss of peripheral vision ENT: Denies facial pain, Denies headache(s), Denies odynophagia and Denies tinnitus Respiratory: Respiratory: Denies snoring Gastrointestinal: Gastrointestinal: Denies odynophagia Neurologic: Denies headache(s) Endocrine: Endocrine: Denies excessive sweating Objective Data Vital Signs Vital Signs: Vital Signs - 24 hr 02/01/20 13:53 02/01/20 14:00 02/01/20 14:45 Temperature 36.7 C Pulse Rate 84 84 Respiratory Rate 20 20 20 Blood Pressure 120/59 L Pulse Oximetry 98 98 95 02/01/20 15:10 02/01/20 15:18 02/01/20 19:38 Temperature Pulse Rate 77 80 106 H Respiratory Rate 20 22 H 22 H Blood Pressure Pulse Oximetry 02/01/20 19:47 02/01/20 22:10 02/02/20 00:20 Temperature 37.2 C Pulse Rate 102 H 114 H Respiratory Rate 22 H 24 H Blood Pressure 145/69 H Pulse Oximetry 93 78 L 02/02/20 00:25 02/02/20 00:30 02/02/20 00:50 Temperature Pulse Rate 110 H 99 94 Respiratory Rate 22 H 20 20 Blood Pressure Pulse Oximetry 80 L 98 100 02/02/20 01:08 02/02/20 02:25 02/02/20 05:55 Temperature Pulse Rate 94 94 108 H Respiratory Rate 18 20 22 H Blood Pressure Pulse Oximetry 100 97 02/02/20 06:15 02/02/20 07:42 02/02/20 08:00 Temperature 37.3 C 37.3 C Pulse Rate 96 101 H 98 Respiratory Rate 28 H 28 H 30 H Blood Pressure 154/62 H 152/66 H Pulse Oximetry 92 92 02/02/20 08:56 02/02/20 10:12 Temperature Pulse Rate 99 102 H Respiratory Rate 28 H 24 H Blood Pressure Pulse Oximetry 97 98 Intake/Output Intake/Output: Intake & Output 01/30/20 01/31/20 02/01/2020 23:59 23:59 23:59 23:59 Intake Total 420 200 Output Total 100 Balance 320 200 Meds/Results Medications: Active Medications Generic Name Dose Route Start Last Admin Trade Name Freq PRN Reason Stop Dose Admin Acetaminophen 1,000 mg 02/01/20 13:54 Tylenol Tablet PO Q6H PRN Pain or Fever Aspirin 81 mg 02/02/20 09:00 02/02/20 11:13 Aspirin Ec PO Not Given DAILY [facility] Azithromycin 500 mg 02/02/20 09:00 02/02/20 11:13 Zithromax Tablet PO 02/06/20 09:01 Not Given DAILY [facility] Calcium Carbonate 2 tablet 02/02/20 08:00 02/02/20 08:48 Oscal +D 250 Mg PO Not Given DAILY@0800 [facility] Cyanocobalamin 1,000 mcg 02/02/20 09:00 02/02/20 11:14 Vitamin B-12 Tab PO Not Given QAM [facility] Diltiazem HCl 480 mg 02/02/20 09:00 02/02/20 11:14 Cardizem Cd PO Not Given QAM [facility] Furosemide 40 mg 02/02/20 09:00 02/02/20 11:14 Lasix Tablet PO Not Given DAILY [facility] Guaifenesin 1,200 mg 02/01/20 21:00 02/02/20 11:14 Mucinex 12 Hr Tab PO Not Given Q12HR [facility] Levalbuterol HCl 1.25 mg 02/01/20 14:30 02/02/20 05:56 Xopenex 1.25 Mg/3 Ml INHALATION 1.25 mg TIDRT [facility] Administration Montelukast Sodium 10 mg 02/02/20 09:00 02/02/20 11:14 Singulair PO Not Given DAILY [facility] Pantoprazole Sodium 40 mg 02/02/20 09:00 02/02/20 11:14 Protonix PO Not Given QAM [facility] Polysaccharide Iron Complex 150 mg 02/02/20 08:00 02/02/20 08:48 Niferex-150 PO Not Given DAILY@0800 [facility] Potassium Chloride 20 meq 02/02/20 09:00 02/02/20 11:15 Kcl Tablet PO Not Given DAILY [facility] Prednisone 10 mg 02/02/20 09:00 02/02/20 11:15 Prednisone PO Not Given DAILY [facility] Fluticasone/Salmeterol 1 puff 02/01/20 18:30 02/02/20 06:22 Advair 100/50 Diskus INHALATION Not Given Q12HRT [facility] Theophylline 300 mg 02/02/20 09:00 02/02/20 11:15 Prashant-Dur 12 Hr PO Not Given DAILY [facility] Tiotropium [place] 1 cap 02/02/20 09:00 02/02/20 11:15 Spiriva INHALATION Not Given DAILY S
--- NOTE | 2020-02-02 12:29 | PM.IMHP ---
H&P: HPI History of Present Illness Chief complaint: rehab <Kristen Lim, [employer]ER [employer] - Last Filed: 02/02/20 17:11> Narrative: Yina Mccormick is a 80 year old male admitted to [facility] late yesterday afternoon. Yesterday the patient stated that he felt better than when he was admitted, but did not quite feel strong enough to go home. He did not feel that he was back to his baseline strength or respiratory function. He continues to have atrial fibrillation that is rate controlled with a heart rate in the 70s to 90s. Remington agreed to [facility] admission at this time and will stay at [facility] for Sw[facility] Rehab due to Weakness, Poor Endurance and Imbalance. This morning nursing staff found the patient to be near unresponsive around shift change, around 6-7:00 a.m. An ABG was completed due to labored breathing and finding him obtunded at 6:00 a.m. with a PaCO2 of 143 and a pH of 7.1. Dr. Courtney, the ER physician, examined the patient and found him to be awake to open his eyes but would not follow commands. He has a DNR status that he signed himself and his agreed do not intubate him. Last night he received methylprednisone and this morning he received DuoNeb treatments. Based on a new chest x-ray this morning, the patient's lab work, and new respiratory status, the ED physician Dr. Courtney transferred him to a negative isolation room for possible COVID19 exposure and testing. He also added ceftriaxone to the azithromycin for possible PNA, COPD or viral pneumonia. He was placed on BiPAP this morning by RT. His respiratory rate and tachypnea improved, as well as his pCO2 and blood gas. Upon my examination I found his lung sounds to be further diminished today, he was able to answer 1-2 question with a yes/no answer, but would not follow commands for me. He was on BiPAP machine during my auscultation. Remington denied any source of pain at this time. His Lorri was also at bedside during my exam. Lorri discussed with her whether he wanted to go home for hospice or not, she stated that he told her he wanted to go home. She again question him about it and again he replied he wanted to go home for hospice care at this time. Based on my discussion with the patient prior to this acute respiratory distress event, that is consistent with his wishes. We will make arrangements to have the patient discharged, transferred to his home via ambulance, for him to establish hospice care with [facility] per the patient and his Lorri's wishes. This will be done today or tomorrow, depending on when the hospice hospital bed and equipment can arrive at their home. <Kristen Lim NP - Last Filed: 02/02/20 17:11> Review of Systems Review of Systems: All systems reviewed & are unremarkable except as noted in HPI and below <Kristen Lim NP - Last Filed: 02/02/20 17:11> ROS unobtainable: Yes unobtainable due to medical condition and unobtainable due to mental status <Kristen Lim [employer] - Last Filed: 02/02/20 17:11> Constitutional: Constitutional: Reports as per HPI, Denies excessive sweating, Reports fatigue, Denies headache(s), Denies increased appetite, Reports lethargy, Denies snoring, Reports weakness and Denies weight gain <Kristen Lim [employer] - Last Filed: 02/02/20 17:11> Eyes: Eyes: Reports as per HPI, Denies exophthalmos, Denies diplopia, Denies floaters and Denies loss of peripheral vision <Kristen Lim [employer] - Last Filed: 02/02/20 17:11> ENT: Reports as per HPI, Denies facial pain, Denies headache(s), Denies odynophagia and Denies tinnitus <Kristen Lim NP - Last Filed: 02/02/20 17:11> Cardiovascular: Cardiovascular: Reports as per HPI, Denies chest pain, Denies pedal edema, Denies leg edema and Denies palpitations <Kristen Lim NP - Last Filed: 02/02/20 17:11> Respiratory: Respiratory: Reports as per HPI, Denies no additional respiratory complaints, Reports chest congestion, Denies cough, Denies hemoptys
--- NOTE | 2020-02-02 17:29 | PM.DS ---
DS: Diagnosis Admitting Diagnosis Admitting Diagnosis: Weakness Discharge Diagnosis (1) Atrial fibrillation with rapid ventricular response: Code(s): I48.91 - Unspecified atrial fibrillation Status: Acute Assessment and Plan: CONTROLLED. HR for past 24 hours has been 70-90bpm now on 480mg diltiazem PO daily. Not rate controlled at admission. HR 110-130s. Called his assayer office and was informed by them that the patient is not a candidate for daily anticoagulation due to occult bleeding history, recurrent falls, and history of bilateral rectus sheath hematomas. continue the daily aspirin at 81 mg, and discontinued his Lovenox. ordered SCDs and Jose hose, but no further anticoagulation at this time due to his risk factors. weaned off IV Dilt yesterday with no concerns or ectopy; home dose was 360 mg daily and that has been increased to 480 daily regarding cardiac enzymes: last 3 troponins were negative. patient continues to deny chest pain, chest pressure, dizziness, numbness or tingling to extremities, jaw pain or shoulder pain. unsure what the source is, working to rule out and/or treat - untreated infection (UA clear, Cultures remain pending: urine/sputum/blood)? electrolyte disturbance (ruled out)? COPD exacerbation (possibly)? CHF exacerbation(no evidence of it on exam, possibly on CXR and elevated BNP)? MA(no evidence of it on exam and Trops negative)? investigating as to whether the WBC is chronically elevated? no fevers noted. his chest x-ray showed development of patchy left greater than right basilar pneumonia or edema. Started him on azithromycin IV antibiotics ordered his neb treatments to be continued and inhalers continued, ordered incentive spirometry, Mucinex, (2) COPD, frequent exacerbations: Code(s): J44.1 - Chronic obstructive pulmonary disease with (acute) exacerbation Status: Acute Assessment and Plan: CHRONIC, Stable at this time, Possibly progressive worsening of disease. Will see if [facility] can improve his respiratory status and endurance and strength. Past history of COPD, RONEY. -->he was given a CPAP machine to use at home, his said he tried to use his new CPAP machine a few nights ago when at home but within a few hours stated that he could not and went from the bedroom out to the couch to sleep better upright for the remainder of the morning. follows with tile power shear operator Dr. Lamar at [facility] Hx. past smoker, pneumonia, Chronic respiratory failure, severe COPD with home oxygen 2 L at rest and 4 L with activity. past hospitalizations due to coughing and dyspnea upon exertion, and wheezing, blood urine and sputum cultures remain pending WBC may be chronically elevated, no fevers noted. chest x-ray showed development of patchy left greater than right basilar pneumonia or edema. Started him on azithromycin IV antibiotics ordered his neb treatments to be continued and inhalers continued, ordered incentive spirometry, Mucinex, PT OT evaluation continue home o2 requirement of 2-4 L O2 NC. (3) Carotid stenosis, left: Code(s): I65.22 - Occlusion and stenosis of left carotid artery Status: Acute Assessment and Plan: NEW carotid Doppler studies today showed 50-69% stenosis in the left internal carotid artery and greater than or equal to 70% stenosis in the right internal carotid artery, but less than near occlusion. advised him to follow-up with a vascular surgeon for consultation, continue daily aspirin, avoid further anticoagulation due to reasons cited above discuss starting a Statin with his assayer Dr. Basurto and/or PCP Dr. Day. head CT showed no acute intracranial abnormality and age related findings. F/U with primary care provider is Dr. Day. (4) Leukocytosis: Code(s): D72.829 - Elevated white blood cell count, unspecified Status: Acute Assessment and Plan: CHRONIC, noted to have chronic elevated WBC count
--- NOTE | 2020-02-02 17:46 | PC.NURSE ---
Water Softener Installer attempted patient a drink of water. Unable
--- NOTE | 2020-02-02 17:58 | PC.NURSE ---
1700 calls and states hospital bed is there and she is ready for him to come home. pie crust mixer aware.
--- NOTE | 2020-02-02 18:00 | PC.NURSE ---
1750 saas aware of need for ride to home. have been talking with hospice. nirmal they are aware.
--- NOTE | 2020-02-02 18:32 | PC.NURSE ---
Patient transported off of floor, via ambulance. Home to Hospice
[2020-02-04 13:55] LABS: SARS-CoV-2 RNA PCR Negative
--- NOTE | 2020-03-03 08:08 | PCOTNOTE ---
Patient is discharged from skilled OT services as he has been discharged from this facility. See patient's evaluation for level of function and skills upon discharge. [place]
== END 2020-02-02 18:20 | disposition hospice, home (50) | DRG 947 ==
PROVIDERS: Family Medicine; Admitting Provider Emergency Medicine; PCP Internal Medicine; Visit Provider Emergency Medicine
DX: R53.1 Weakness (principal); J18.9 Pneumonia, unspecified organism; I48.20 Chronic atrial fibrillation, unspecified; J44.1 Chronic obstructive pulmonary disease with (acute) exacerbation; R06.03 Acute respiratory distress; I50.9 Heart failure, unspecified; Z20.828 Contact with and (suspected) exposure to other viral communicable diseases; N40.0 Benign prostatic hyperplasia without lower urinary tract symptoms; I65.22 Occlusion and stenosis of left carotid artery; D72.829 Elevated white blood cell count, unspecified
CPT/HCPCS: 36600; 71045; 82805; 87635; 94640; 94660; 97161; A9270; J0696; U0003